=== PATIENT | female | born 1990 | race Caucasian/White ===

== ENCOUNTER 2017-02-19 05:00 | Day surgery (SDC) | payer MEDICAID ==
[2017-02-17 11:23] LABS: BASOPHILS 0.3 % (0-2); EOSINOPHILS 0.6 % (0-7); HEMATOCRIT 43.8 % (36.0-48.0); HEMOGLOBIN 14.7 g/dL (12-16); IMMATURE GRANULOCYTES 0.3 % (0-5); LYMPHOCYTES 29.7 % (15-50); MCH 30.2 pg (26.0-34.0); MCHC 33.6 g/dL (31.0-37.0); MCV 89.9 fL (80.0-100.0); MEAN PLATELET VOLUME 10.7 fL (7.4-10.4); MONOCYTES 7.3 % (2-11); NEUTROPHILS 61.8 % (40-80); PLATELET COUNT 236 10x3/uL (130-400); RBC 4.87 10x6/uL (4.00-5.40); WBC 6.3 10x3/uL (4.8-10.8)
[2017-02-17 11:26] LABS: CALC OSMOLALITY 282 mosm/kg (275-300); CALCIUM 9.7 mg/dL (8.5-10.1); CARBON DIOXIDE 17.4 mmol/L (21.0-32.0); CHLORIDE - SERUM 109 mmol/L (98-107); CREATININE - SERUM 0.7 mg/dL (0.6-1.3); GLUCOSE 92 mg/dL (74-106); POTASSIUM - SERUM 4.7 mmol/L (3.5-5.1); SODIUM 142 mmol/L (136-145); UREA NITROGEN 12 mg/dL (7-18); eGFR NON AFRICAN AMERICAN > 90 mL/min (90-120)
[~2017-02-19 05:00] MED LIST: CLARITIN 10 MG10 MG PO; DEPAKOTE500 MG PO; DEPO-PROVER150 MG/ML IM; FLUTICASONE PRO16 GM NASAL; TOPAMAX100 MG PO
[2017-02-19 05:48] VITALS: BP 140/76; BMI 47.3
[2017-02-19 06:01] LABS: HCG URINE NEGATIVE (NEGATIVE)
--- NOTE | 2017-02-19 07:23 | HP ---
PATIENT: WILFREDO PRUETT MEDICAL RECORD: [id number] ACCOUNT: [id number] LOCATION:[facility] : 92 ADMISSION DATE: 02/19/17 HISTORY AND PHYSICAL EXAMINATION HISTORY OF PRESENT ILLNESS: This patient is a 26-year-old 0 white female with disability, physical and emotional. She desires endometrial ablation for relief of severe menorrhagia. She is currently on Depo-Provera injections and has been for several years and wishes to discontinue that. DRUG ALLERGIES: TYLENOL. CURRENT MEDICATIONS: Claritin, Depakote, Depo-Provera, Flonase, and Topamax. PREVIOUS SURGERY: None. MEDICAL PROBLEMS: No heart disease, diabetes. The patient is limited in her physical abilities to care for herself. These disabilities have been present since . FAMILY HISTORY: Noncontributory. REVIEW OF SYSTEMS: No chest pain, no dyspnea. Previous history of severely heavy irregular menses. PHYSICAL EXAMINATION: VITAL SIGNS: Blood pressure is 110/80, BMI is 47.2, and weight is 258. GENERAL: Well-developed, morbidly obese white female, in no acute distress. The patient is able to speak and make her wishes in own and she wants to have an ablation in hopes of stopping all menses or decreasing the amount. She would then be able to stop her Depo-Provera injections, but she does not want to continue. HEENT: Grossly unremarkable. LUNGS: Clear. HEART: Regular rate and rhythm. PELVIC: Deferred for anesthesia. EXTREMITIES: No cyanosis, clubbing, or edema. The patient has some mild right-sided paralysis. IMPRESSION: Menorrhagia, physical and emotional disabilities limiting her ability to care for herself. PLAN: The patient desires endometrial ablation. We will also plan a Pap smear and an endometrial biopsy under same anesthesia. I discussed with the patient and her parents tubal ligation at the same anesthesia. However, this would increase her time under anesthesia and risk of complications and they desired this not be done. Risks of procedure were discussed in detail, anesthesia, infection, bleeding, perforation of the uterus, injury to other organs, requiring more extensive surgery. All questions were answered. TRANSINT:[id number] Voice Confirmation ID: [id number] DOCUMENT ID: [id number] HISTORY AND PHYSICAL [id number] SEBLEWILFREDO HANNAH GARCIA MD at 0723 CC: [id number] DICTATION DATE: 02/18/17 1309 STOREROOM CLERK: 02/18/17 1338 [id number] [place] [address]
--- NOTE | 2017-02-19 14:29 | NUR ---
1240--PT VOIDS, IV DC'D. ANGELA ALANIS' 1250--DISCHARGE INSTRUCTIONS GIVEN, PT VERBALIZES UNDERSTANDING. PT OFF UNIT VIA WC. ANGELA ALANIS
== END 2017-02-19 12:50 | disposition home or self-care (01) ==
LOC: D.OPS 05:00 → D.PAN 07:30 → D.OPS 08:30
PROVIDERS: Obstetrics & Gynecology
DX: N93.8 Other specified abnormal uterine and vaginal bleeding (principal); Z87.820 Personal history of traumatic brain injury; G81.90 Hemiplegia, unspecified affecting unspecified side; W19.XXXS Unspecified fall, sequela; Z79.899 Other long term (current) drug therapy; Z01.812 Encounter for preprocedural laboratory examination